=== PATIENT | female | born 1945 | race Caucasian/White ===

== ENCOUNTER 2021-10-06 09:16 | Outpatient (CLI) | payer MEDICARE, OTHER | END 2021-10-06 09:17 | disposition home or self-care (01) | LOC: CSHMAMMO 09:16 | PROVIDERS: ATTEND Family Medicine | DX: Z12.31 Encounter for screening mammogram for malignant neoplasm of breast (principal) | CPT/HCPCS: 77063; 77067 ==

== ENCOUNTER 2022-04-04 09:02 | Outpatient (CLI) | payer MEDICARE, OTHER | END 2022-04-04 09:03 | disposition home or self-care (01) | LOC: CSHCT 09:02 | PROVIDERS: ATTEND Family Medicine | DX: M48.062 Spinal stenosis, lumbar region with neurogenic claudication (principal); M47.816 Spondylosis without myelopathy or radiculopathy, lumbar region | CPT/HCPCS: 72131 ==

== ENCOUNTER 2022-11-01 07:50 | Outpatient (CLI) | payer MEDICARE, OTHER | END 2022-11-01 07:51 | disposition home or self-care (01) | LOC: CSHMAMMO 07:50 | PROVIDERS: ATTEND Family Medicine | DX: Z12.31 Encounter for screening mammogram for malignant neoplasm of breast (principal) | CPT/HCPCS: 77063; 77067 ==